=== PATIENT | male | born 1960 ===

== ENCOUNTER → 2023-09-14 | Outpatient (CLI) | payer OTHER | END | disposition home or self-care (01) | LOC: RADMN 09:59 | PROVIDERS: ATTEND Family Medicine | DX: Z12.2 Encounter for screening for malignant neoplasm of respiratory organs (principal); I70.0 Atherosclerosis of aorta; J43.2 Centrilobular emphysema; J43.8 Other emphysema; Z90.49 Acquired absence of other specified parts of digestive tract; R91.1 Solitary pulmonary nodule; M47.814 Spondylosis without myelopathy or radiculopathy, thoracic region | CPT/HCPCS: 71250 ==